=== PATIENT | female | born 1980 | race Caucasian/White ===

== ENCOUNTER 2017-12-21 18:07 | Emergency (ER) | payer MEDICAID, OTHER ==
--- NOTE | 2017-12-21 18:46 | XRAY Report ---
EXAM: RIGHT FOOT RADIOGRAPHY EXAM DATE: 12/21/2017 06:38 PM. CLINICAL HISTORY: Fall, R foot pain. COMPARISON: None. TECHNIQUE: 3 views. FINDINGS: Bones: Normal. No fractures or bone lesions. Joints: Normal. No subluxations. Soft Tissues: Normal. No soft tissue swelling. IMPRESSION: Normal foot radiography. [facility] Referring Provider Line: [phone] SITE ID: [id number]
--- NOTE | 2017-12-21 18:46 | XRAY Preliminary Report ---
Exam: XR FOOT 3 VIEW RT IMPRESSION: Normal foot radiography. [facility] SITE ID: [id number]
--- NOTE | 2017-12-21 18:47 | XRAY Preliminary Report ---
Exam: XR ANKLE 3 VIEW RT IMPRESSION: Soft tissue swelling, but no evidence of acute fracture. [facility] SITE ID: [id number]
--- NOTE | 2017-12-21 18:47 | XRAY Report ---
EXAM: RIGHT ANKLE RADIOGRAPHY EXAM DATE: 12/21/2017 06:38 PM. CLINICAL HISTORY: Fall, R ankle pain. COMPARISON: None. TECHNIQUE: 3 views. FINDINGS: Bones: Small plantar calcaneal spur. No evidence of acute fracture. Joints: Normal. No effusion. No subluxations. The ankle mortise is normally aligned. Soft Tissues: Lateral soft tissue swelling. IMPRESSION: Soft tissue swelling, but no evidence of acute fracture. [facility] Referring Provider Line: [phone] SITE ID: [id number]
[2017-12-21] MEDS ORDERED: HYDROcod/ACETAM 5/325 MG TABLET PO STA (19:09)
--- NOTE | 2017-12-21 19:11 | ED Physician Documentation ---
PD HPI LOWER EXT INJURY - Stated complaint Stated Complaint: R ANKLE INJ - Chief complaint Chief Complaint: Ext Problem - History obtained from History obtained from: Patient - History of Present Illness PD HPI LOW EXT INJURY LOCATION: Right Type of injury: Twist Where injury occurred: Home Timing - onset: Last night Timing - duration: Days (1) Timing - details: Abrupt onset Pain level max: 7 Pain level now: 7 Improved by: Rest, Ice, Immobilization Worsened by: Moving, Palpating, Other (walking) Associated symptoms: Swelling, Discolored (ecchymosis). No: Weakness, Numbness , Tingling Contributing factors: No: Anticoagulated, Prior ortho surgery, Prosthetic joint Recently seen: Not recently seen Review of Systems : denies: Now EGA Skin: denies: Rash Musculoskeletal: denies: Neck pain, Back pain PD PAST MEDICAL HISTORY - Past Medical History Past Medical History: No - Past Surgical History Past Surgical History: No - Present Medications Home Medications: Ambulatory Orders Medication Instructions Recorded Confirmed Hydrocodone/Acetaminophen 1 - 2 each PO Q6H PRN #14 tablet 12/21/17 [Hydrocodon-Acetaminophen 5-325] Ibuprofen [Motrin] 800 mg PO Q8H PRN #30 tablet 12/21/17 - Allergies Allergies/Adverse Reactions: Allergies Allergy/AdvReac Type Severity Reaction Status Date / Time No Known Drug Allergies Allergy Verified 12/21/17 18:14 - Living Situation Living Situation: reports: With family Living Arrangement: reports: At home - Social History Does the pt have substance abuse?: No PD ED PE NORMAL - Vitals Vital signs reviewed: Yes - General General: Alert and oriented X 3, No acute distress - HEENT HEENT: Moist mucous membranes - Neck Neck: Supple, no meningeal sign - Cardiac Cardiac: RRR - Respiratory Respiratory: No respiratory distress - Derm Derm: Warm and dry - Extremities Extremities: Other (R ankle - diffuse swelling. TTP over lateral malleolus and base of 5th MT. NVI. ) - Neuro Neuro: Alert and oriented X 3 - Psych Psych: Normal mood, Normal affect Results - Vitals Vitals: Vital Signs - 24 hr 12/21/17 12/21/17 18:09 19:35 Temperature 36.8 C Heart Rate 88 78 Respiratory 16 17 Rate Blood Pressure 140/85 H 118/76 O2 Saturation 97 99 Oxygen O2 Source Room air - Rads (name of study) R ankle xray Radiology: Prelim report reviewed, EMP read contemporaneously, See rad report ( Soft tissue swelling, but no evidence of acute fracture. ) R foot xray Radiology: Prelim report reviewed, EMP read contemporaneously, See rad report ( normal) PD MEDICAL DECISION MAKING - ED course Complexity details: reviewed results, re-evaluated patient, considered differential, d/w patient ED course: Patient is a 37-year-old female with a right ankle sprain. Placed in a gel splint and given crutches. Will prescribe pain medication for home. Normal x- rays. Counseled regarding missed fractures secondary to acute swelling and may need repeat xrays if not improving. Patient counseled regarding signs and symptoms for which I believe and urgent re-evaluation would be necessary. Patient with good understanding of and agreement to plan and is comfortable going home at this time This document was made in part using voice recognition software. While efforts are made to proofread this document, sound alike and grammatical errors may occur. Departure - Departure Disposition: 01 Home, Self Care Clinical Impression: Right ankle sprain Qualifiers: Encounter type: initial encounter Involved ligament of ankle: unspecified ligament Qualified Code(s): S93.401A - Sprain of unspecified ligament of right ankle, initial encounter Condition: Good Instructions: ED Sprain Ankle W X Ray Follow-Up: your,doctor in 1 week if not better [Other] Prescriptions: Hydrocodone/Acetaminophen [Hydrocodon-Acetaminophen 5-325] 1 - 2 each PO Q6H PRN #14 tablet PRN Reason: pain Ibuprofen [Motrin] 800 mg PO Q8H PRN #30 tablet PRN Reason: PAIN &/OR FEVER Comments: Return if you worsen. Wear the splint at least for the next week. You may need to wear it longer is will provide additional support while you are ligaments heal. You may bear weight as tolerated. Do not drink alcohol or drive while on narcotic pain medicine. Note that many narcotic pain relievers also contain tylenol/acetaminophen. Please ensure that your total dose of acetaminophen from all sources does not exceed 3 grams (3000mg) per day. You may constipated on this medication, take a stool softener such as "Colace" twice a day while you are on it. Also recommend a arga-ttk-tndtqth laxative such as senna or MiraLAX any day that you do not have a bowel movement. If you received narcotic pain medication in the emergency department, do not drive or operate machinery for the next 24 hours. Forms: Activity restrictions Discharge Date/Time: 12/21/17 19:35
[2017-12-21 19:38] VITALS: BP 118/76
== END 2017-12-21 19:35 | disposition home or self-care (01) ==
LOC: ED 18:07
DX: S93.401A Sprain of unspecified ligament of right ankle, initial encounter (principal); X50.1XXA Overexertion from prolonged static or awkward postures, initial encounter; Y92.009 Unspecified place in unspecified non-institutional (private) residence as the place of occurrence of the external cause
CPT/HCPCS: 73610; 73630; 99283; A9270

== ENCOUNTER 2020-06-29 08:27 | Outpatient (CLI) | payer MEDICAID ==
[2020-06-29 14:35] LABS: BASOPHILS # (AUTO) 0.1 10^3/uL (0.0-0.1); EOSINOPHILS # (AUTO) 0.5 10^3/uL (0.0-0.7); EOSINOPHILS % (AUTO) 5.9 %; HGB - HEMOGLOBIN 13.5 g/dL (12.0-16.0); LYMPHOCYTES # (AUTO) 3.3 10^3/uL (1.5-3.5); LYMPHOCYTES % (AUTO) 41.1 %; MEAN CORPUSCULAR HGB CONC 31.8 g/dL (32.0-36.0); MEAN CORPUSCULAR VOLUME 94.2 fL (81.0-99.0); MEAN PLATELET VOLUME 10.4 fL (7.9-10.8); MONOCYTES # (AUTO) 0.5 10^3/uL (0.0-1.0); MONOCYTES % (AUTO) 6.1 %; NEUTROPHILS # (AUTO) 3.6 10^3/uL (1.5-6.6); NEUTROPHILS % (AUTO) 45.4 %; PLT - PLATELET COUNT 304 10^3/uL (130-450); RED CELL DISTRIBUTION WIDTH 13.3 % (12.0-15.0); WHITE BLOOD COUNT 7.9 x10^3/uL (4.8-10.8)
[2020-06-29 15:36] LABS: ALBUMIN 4.1 g/dL (3.2-5.5); ALBUMIN/GLOBULIN RATIO 1.3 (1.0-2.2); BILIRUBIN,TOTAL 0.8 mg/dL (0.2-1.0); CALCIUM 9.2 mg/dL (8.5-10.3); CREATININE 0.6 mg/dL (0.4-1.0); TOTAL PROTEIN 7.2 g/dL (6.7-8.2)
[2020-06-29 20:24] LABS: HEMOGLOBIN A1c% 6.1 % (4.27-6.07)
== END 2020-06-29 08:28 | disposition home or self-care (01) ==
LOC: LAB.S 08:27
PROVIDERS: ATTEND Registered Nurse
DX: R73.03 Prediabetes (principal)
CPT/HCPCS: 36415; 80053; 83036; 84443; 85025

== ENCOUNTER 2021-11-10 17:12 | Emergency (ER) | payer MEDICAID ==
[2021-11-10 17:33] LABS: BASOPHILS # (AUTO) 0.1 10^3/uL (0.0-0.1); BASOPHILS % (AUTO) 0.8 %; EOSINOPHILS # (AUTO) 0.5 10^3/uL (0.0-0.7); EOSINOPHILS % (AUTO) 5.3 %; HCT - HEMATOCRIT 42.2 % (37.0-47.0); HGB - HEMOGLOBIN 14.3 g/dL (12.0-16.0); LYMPHOCYTES # (AUTO) 3.7 10^3/uL (1.5-3.5); LYMPHOCYTES % (AUTO) 39.9 %; MEAN CORPUSCULAR HEMOGLOBIN 30.5 pg (27.0-31.0); MEAN CORPUSCULAR HGB CONC 33.9 g/dL (32.0-36.0); MEAN PLATELET VOLUME 9.6 fL (7.9-10.8); MONOCYTES # (AUTO) 0.7 10^3/uL (0.0-1.0); MONOCYTES % (AUTO) 7.3 %; NEUTROPHILS # (AUTO) 4.3 10^3/uL (1.5-6.6); NEUTROPHILS % (AUTO) 46.4 %; PLT - PLATELET COUNT 284 10^3/uL (130-450); RED BLOOD COUNT 4.69 10^6/uL (4.20-5.40); RED CELL DISTRIBUTION WIDTH 13.4 % (12.0-15.0); WHITE BLOOD COUNT 9.2 x10^3/uL (4.8-10.8)
[2021-11-10 17:48] LABS: ALBUMIN 4.3 g/dL (3.2-5.5); ALBUMIN/GLOBULIN RATIO 1.2 (1.0-2.2); BILIRUBIN,TOTAL 0.6 mg/dL (0.2-1.0); CALCIUM 9.9 mg/dL (8.5-10.3); CREATININE 0.7 mg/dL (0.4-1.0); TOTAL PROTEIN 7.9 g/dL (6.7-8.2)
--- NOTE | 2021-11-10 17:57 | XRAY Report ---
PROCEDURE: Chest 1 View X-Ray INDICATIONS: Chest pain TECHNIQUE: One view of the chest was acquired. COMPARISON: None. FINDINGS: Surgical changes and devices: None. Lungs and pleura: No pleural effusions or pneumothorax. Lungs are clear. Mediastinum: Mediastinal contours appear normal. Heart size is normal. Bones and chest wall: No suspicious bony lesions. Overlying soft tissues appear unremarkable. IMPRESSION: No acute cardiopulmonary disease. Reviewed by: David Arzate MD on 11/10/2021 5:56 PM PDT Approved by: David Arzate MD on 11/10/2021 5:56 PM PDT Station ID: [id number]
--- NOTE | 2021-11-10 20:18 | ED Physician Documentation ---
History of Present Illness - Stated complaint Stated Complaint: CP - Chief complaint Chief Complaint: Cardiac - Additonal information Additional information: 41-year-old female presents emergency department for evaluation of 3 days intermittent chest pain. She reports it is typically worse at night especially when laying flat. She does have a history of acid reflux. She denies exertional component. No shortness of air. While here in ER she does have some mild chest discomfort. She is obese and prediabetic but takes no other medications has never been seen by chief jailer. Patient also reports that she often has pain in her throat when she swallows. She often gets food stuck in her throat. Review of Systems Constitutional: denies: Fever, Chills Eyes: reports: Reviewed and negative Nose: reports: Reviewed and negative Cardiac: reports: Chest pain / pressure. 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 - Past Surgical History Past Surgical History: Yes HEENT: Tonsil/Adenoidectomy - Present Medications Home Medications: Ambulatory Orders Medication Instructions Recorded Confirmed Ibuprofen [Motrin] 800 mg PO Q8H PRN #30 tablet 12/21/17 Gabapentin [Gralise] 300 mg PO TID 11/10/21 11/10/21 Pramipexole Di-HCl [Mirapex] 0.125 mg PO HS 11/10/21 11/10/21 Venlafaxine HCl [Effexor Xr] 225 mg PO DAILY 11/10/21 11/10/21 traZODone [Desyrel] 50 mg PO DAILY 11/10/21 11/10/21 - Allergies Allergies/Adverse Reactions: Allergies Allergy/AdvReac Type Severity Reaction Status Date / Time No Known Drug Allergies Allergy Verified 11/10/21 17:16 - Social History Does the pt smoke?: No Smoking Status: Never smoker Does the pt drink ETOH?: No Does the pt have substance abuse?: No - Immunizations Immunizations are current?: Yes - POLST Patient has POLST: No PD ED PE NORMAL - General General: Alert and oriented X 3, No acute distress, Well developed/nourished - HEENT HEENT: Atraumatic, Pharynx benign - Neck Neck: Supple, no meningeal sign - Cardiac Cardiac: RRR, No murmur - Respiratory Respiratory: No respiratory distress, Clear bilaterally - Abdomen Abdomen: Normal bowel sounds, Soft, Non tender - Back Back: No CVA TTP, No spinal TTP - Derm Derm: Normal color, Warm and dry, No rash - Extremities Extremities: No deformity, No tenderness to palpate, Normal ROM s pain - Neuro Neuro: laboratory courier 2-12 intact Eye Opening: Spontaneous Motor: Obeys Commands Verbal: Oriented GCS Score: 15 Results - Vitals Vitals: Vital Signs - 24 hr 11/10/21 11/10/21 11/10/21 17:16 18:05 18:56 Temperature 36.8 C Heart Rate 72 85 86 Respiratory 18 16 16 Rate Blood Pressure 156/75 H 139/88 H 129/81 H O2 Saturation 99 98 97 11/10/21 11/10/21 19:23 19:27 Temperature Heart Rate 82 Respiratory 17 18 Rate Blood Pressure 115/82 H O2 Saturation 100 Oxygen O2 Source Room air - EKG (time done) 1717 Rate: Rate (enter#) (78) Rhythm: NSR [place]: Normal Intervals: RBBB QRS: Normal Ischemia: Normal ST segments Compare to prior EKG: Old EKG unavailable Computer interpretation: Agree with computer - Labs Labs: Laboratory Tests 11/10/21 11/10/21 11/10/21 17:26 17:26 17:26 WBC 9.2 RBC 4.69 Hgb 14.3 Hct 42.2 MCV 90.0 MCH 30.5 MCHC 33.9 RDW 13.4 Plt Count 284 MPV 9.6 Neut # (Auto) 4.3 Lymph # (Auto) 3.7 H [place] # (Auto) 0.7 Eos # (Auto) 0.5 Baso # (Auto) 0.1 Absolute Nucleated RBC 0.00 Nucleated RBC % 0.0 Sodium 136 Potassium 4.0 Chloride 99 L Carbon Dioxide 28 Anion Gap 9.0 BUN 16 Creatinine 0.7 Estimated GFR (MDRD) 93 Glucose 121 H Calcium 9.9 Total Bilirubin 0.6 AST 54 H ALT 96 H Alkaline Phosphatase 62 Troponin I High Sens 2.5 Total Protein 7.9 Albumin 4.3 Globulin 3.6 Albumin/Globulin Ratio 1.2 Lipase 37 PD MEDICAL DECISION MAKING - ED course Complexity details: reviewed results, re-evaluated patient, d/w patient ED course: 41-year-old female presents emergency department for evaluation of 3 days chest pain and discomfort. Mostly worse at night especially when laying flat. She does have a history of gastritis and acid reflux and I do suspect that this may be the cause. However her screening EKG does show a right bundle branch block. However reassuringly her chest x-ray is unremarkable and her troponin is negative. We do not have the ability to do a stress test here at [facility]. Patient was discussed briefly with the nighttime hospitalist . Patient is also describing situations when she swallows bread or meat at home that food gets stuck in her esophagus and she has to vomit it up. I suspect that she may have an esophageal stricture and this may also be contributing to her chest discomfort. Findings were discussed with the patient she will follow up closely with her primary care doctor and should be referred for an outpatient stress test/echocardiogram Departure - Departure Disposition: Home, Self Care Clinical Impression: RBBB Chest pain Qualifiers: Chest pain type: unspecified Qualified Code(s): R07.9 - Chest pain, unspecified Condition: Stable Record reviewed to determine appropriate education?: Yes Comments: Payal you are seen today in the emergency department for chest discomfort. You describe that the pain is worse at night when you lay flat you also describes situations in which you swallow meat or bread and you have to vomit due to pain and obstruction. I suspect that you may have some acid reflux/gastritis or even an esophageal stricture that is causing your chest discomfort. Your primary care provider should refer you to a GI doctor for an EGD or endoscopy. However your screening EKG today did show a right bundle branch block. This is an abnormal electrical conduction of the heart. This is atypical in somebody who is 41 but it does not necessarily mean that you have had a heart attack. However given your age you should be referred to a chief jailer for a stress test and an echocardiogram. If at any point you find that your symptoms are worsening, you have fainting episodes uncontrolled choking or vomiting please return immediately to the emergency department
[2021-11-10 20:34] VITALS: BP 118/93
== END 2021-11-10 20:34 | disposition home or self-care (01) ==
LOC: ED 17:12
DX: R07.9 Chest pain, unspecified (principal); I45.10 Unspecified right bundle-branch block; R73.03 Prediabetes
CPT/HCPCS: 36415; 80053; 83690; 84484; 85025; 93005; 99282; 99284